=== PATIENT | male | born 1990 | race Caucasian/White ===

== ENCOUNTER 2024-11-27 07:59 | Outpatient (AMB) | payer OTHER, SELFPAY ==
--- OUTSIDE RECORDS SUMMARY | 2024-11-27 08:02 | XMS_ITS | Data Portability ---
Author Organization [facility]ang [facility] [address] Address [address] [place] [address] Care Team Providers Care Medical Terminologist Name Role Phone [facility] Primary Care Provider Assessment No assessment recorded. Plan of Treatment Reminders Order Date Submit Date Provider Last Modified By Organization Details Last Modified Time Details Appointments None recorded. Lab None recorded. Referral None recorded. Procedures None recorded. Surgeries None recorded. Imaging None recorded. Medication Orders amoxicillin 875 mg-potassiu m clavulanate 125 mg tablet 2022 023 [id number] [id number], [address] [place], [address], 19:51:31 Patient TargetsNo targets recorded. Patient Instructions Encounter Date Encounter Id Patient Instructions Last Modified By Organization Details Last Modified Time 04/19/2023 [id number] head or face pain: care instructions [email or web address] Not available 04/19/2023 19:51:12 abscessed tooth: care instructions [email or web address] Not available 04/19/2023 19:51:12 Reason for Referral None Reported. Problems No Known Problems Procedures Surgical History Date Name Laterality Status Provider Name and Address Organization Details Recorded Time 10/22/19 11 procedure on eye completed MEIR DEPINTO PA - [facility] 04/19/2023 19:40:49 04/19/19 98 Ear Tube completed MEIR DEPINTO PA - [facility] 04/19/2023 19:40:21 tonsillectomy completed MEIR DEPINTO PA - [facility] 04/19/2023 19:39:57 Imaging Results None recorded. Procedure Notes None recorded. Medical Equipment None Reported. Allergies No known drug allergies Medications Name Sig Start Date Stop Date Status Note LastModified by Organization Details LastModified Time amoxicillin 875 mg-potassium clavulanate 125 mg tablet Take 1 tablet twice a day by oral route for 10 days. 023 active Not Available Not Available Not Avai lable Vitals Date Recorded Body height Body mass index (BMI) Body weight Pain severity - 0-10 verbal numeric rating [Score] - Reported Oxygen saturation Oxygen saturation in Arterial blood by Pulse oximetry Heart rate Respiratory rate Body temperature Systolic blood pressure Diastolic blood pressure Provider Name and Address Organization Details Last Updated DateTime 167.64 cm 58.1 kg/m2 114612. 25 g 7 98 % 98 % 89 /min 18 /min 97.9 [degF] 125 mm[Hg] 83 mm[Hg] MEIR [place] - [facility] 19:42:15 Social History Question Answer Notes LastModified by Organizat ion Details LastModified Time Tobacco Smoking Status Never Smoker [facility] 04/19/2023 19:39:43 What Is Your Level Of Alcohol Consumption? None Information not available 04/19/2023 Do You Use Any Illicit Or Recreational Drugs? No Information not available 04/19/2023 Have You Recently Traveled Abroad? No Information not available 04/19/2023 Do You Or Have You Ever Used Any Other Forms Of Tobacco Or Nicotine? No Information not available 04/19/2023 Sex: Unknown Functional Status None recorded. Mental Status None recorded. Family History Relationship Description Onset Age of this Age Resolved Age Notes LastModified by Organization Details LastModified Time Father Heart disease Not available 2022 19:39:26 Father Diabetes mellitus Not available 2022 19:39:31 Father Hypertensive disorder Not available 2022 19:39:36 Medical History No medical history recorded. Immunizations Vaccine Type Date Status Note Provider Nam e and Address Organization Details Recorded Time COVID-19, mRNA, LNP-S, PF, 30 mcg/0.3 mL dose, jillian-sucrose 11/28/2021 completed [facility] 04/19/2023 19:38:55 Past Encounters Encounter ID Performer Location Encounter Start Date Encounter Closed Date Diagnosis/Indication Diagnosis SNOMED-CT Code Diagnosis ICD10 Code Diagnosis Note [id number] [facility] [address] [place] [address] 03/15/2016 14:52:31 03/15/2016 15:42:25 [id number] [facility] [id number] [facility] [address] [place] [address] 04/19/2023 19:22:44 04/19/2023 19:51:52 Dental abscess [id number] K04.7 Based on your presentati on and exam, you are being treated for a Dental Infection. I am going to prescribe you and antibiotic to cover this infection. Please be sure to complete the full course of this antibiotic to prevent antibiotic resistance . Antibiotic s will typically take 4-5 days to start to work with symptom improvemen t. The following are my other recommenda tions to help with symptoms and is important for this diagnosis: 1. Take Ibuprofen or Tylenol if you do not have any allergies to these medication s. If you take a blood thinner you should not take NSAIDS like Ibuprofen. These medication will help with the inflammati on in your respirator y tract which should help the cough.2. Half Peroxide/H vaishnavi Water Rinses3. Make an appointmen t with a dentist - tooth infection will be helped with antibiotic s but they usually just continue to reoccur. The only treatment is really a root canal or tooth extraction .4. Oralgel can help alleviate some of the symptoms - this can be purchased OTC5. Ice is ok to help with symptoms, but do not apply heat. I would be seen again if you develop any of the following symptoms.1 . Fever > 101.02. Stiff neck - where you can't turn your neck3. Trouble swallowing your saliva - drooling4. Swelling of a lymph node in your throat that is painful to touch5. Difficulty breathing6 . Severe Headache7. Significan t facial swelling especially if it move up close to your eye. Thank you for using [facility] today, please feel free to contact our office if you have any questions or concerns. Health Concerns Section Related Observation LastModified by Organization Sanchez scruggs LastModified Time None Recorded Concern Status LastModified by Organization Details LastModified Time None Recorded Advance Directives Directive None Recorded Payers Encounter Date Sequence Insurance Name Policy Number Policy Clifford Covered Member ID Clifford Member ID Guarantor Name 03/15/2016 1 [facility] [id number] Kavon Garza [id number] Anders Garza 04/19/2023 1 [employer] (POS) [id number] Anders Garza [id number] Anders Garza Notes Date Note Type Note Provider Name and Address Organization Details Recorded Time 04/19/2023 text/html Facial ProblemReported bypatient.Location:fa ce left Quality:painful Duration:2days Severity:worsening Context:recent sick contacts Alleviating factors:none Aggravating factors:cold; eating; touching face Associated Symptoms:facial painNotes:The patient was at the dentist and was told needed a root canal. Was not having any issues. Has a root canal for next Sunday scheduled. Wasn't having pain until a few days ago. Now roof of mouth sore and the cheek to touch. The patient feels lymph nodes swelling under the neck. no fever. FELIX NAVARRETE [address] [place], [address], [place] - [facility] 04/19/2023 19:55:05
[2024-11-27 08:09] VITALS: BP 118/70; PULSE 85; TEMP 36.9; O2SAT 99
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
== END 2024-11-27 08:25 | disposition home or self-care (01) ==
PROVIDERS: Visit Provider Physician Assistant
DX: M54.9 Dorsalgia, unspecified (principal); V89.2XXA Person injured in unspecified motor-vehicle accident, traffic, initial encounter; M62.830 Muscle spasm of back; Z04.3 Encounter for examination and observation following other accident

== ENCOUNTER → 2024-11-27 07:59 | Outpatient (BNVA) | payer OTHER, SELFPAY | DX: M54.6 Pain in thoracic spine (principal); M62.830 Muscle spasm of back; M25.512 Pain in left shoulder; M25.532 Pain in left wrist; M79.605 Pain in left leg | CPT/HCPCS: 99202 ==